=== PATIENT | female | born 1980 | race American Indian/Alaskan Native ===

== ENCOUNTER 2017-06-24 18:58 | Emergency (ER) | payer OTHER ==
[2017-06-24 19:28] VITALS: BP 143/100
[2017-06-24] MEDS ORDERED: PERCOCET 5/325 PO ONE (21:58)
--- NOTE | 2017-06-24 22:16 | Emergency Department Report ---
ED Rash HPI - HPI Chief Complaint: Skin Rash Stated Complaint: RASH Time Seen by Provider: 06/24/17 21:57 Duration: 7 days Location: Chest (left side under breast) Rash Symptoms: No Itching, No Facial Swelling, No Tongue/Oral Swelling, No Breathing Difficulties, No Choking Sensation, No Wheezing/Dyspnea, No Peeling, No Blistering, No Fever, No Lightheaded, No Malaise, No Myalgias Severity: severe Other History: 37-year-old -[place] female with a past medical history of diabetes anxiety in herpes 2 comes in complaining of rash under her left breast. She reports she is being treated for the last 7 days with Silvadene cream that she started on Sunday and Valtrex 500 mg daily that she started on . She reports pain is worsening also reports a blister on her crack of her butt that has been draining. Patient reports her pain is a 10 out of 10. ED Review of Systems ROS: Stated complaint: RASH Other details as noted in HPI Constitutional: denies: chills, fever Eyes: denies: eye pain, eye discharge, vision change ENT: denies: ear pain, throat pain Respiratory: denies: cough, shortness of breath, wheezing Cardiovascular: denies: chest pain, palpitations Endocrine: no symptoms reported Gastrointestinal: denies: abdominal pain, nausea, diarrhea Genitourinary: denies: urgency, dysuria, discharge Musculoskeletal: denies: back pain, joint swelling, arthralgia Skin: lesions (under left breast, between the gluteal folds), other (painful rash under left breast with mild discharge, cut on the gluteal fold with discharge) Neurological: denies: headache, weakness, paresthesias Psychiatric: denies: anxiety, depression Hematological/Lymphatic: denies: easy bleeding, easy bruising ED Past Medical Hx - Past Medical History Hx Diabetes: Yes Hx Psychiatric Treatment: Yes (Anxiety) Additional medical history: Herpes 2. - Surgical History Past Surgical History?: No - Social History Smoking Status: Current Some Day Smoker Substance Use Type: None - Medications Home Medications: Home Medications Medication Instructions Recorded Confirmed Last Taken Type HYDROcodone/APAP 10-325 [[place] 1 each PO Q8HR PRN #20 tablet 03/09/15 Unknown Rx 10/325] Lisinopril [Zestril TAB] 10 mg PO DAILY 30 Days tablet 03/09/15 Unknown Rx Sitagliptin Phosphate [Januvia] 100 mg PO DAILY #30 tablet 03/09/15 Unknown Rx metFORMIN XR [Glucophage XR] 1,000 mg PO QDAY #60 tablet 03/09/15 Unknown Rx Acetaminophen/Codeine [Tylenol 1 tab PO Q6H PRN #12 tab 06/24/17 Unknown Rx /Codeine # 3 tab] Ibuprofen 800 mg PO Q8HR PRN #30 tablet 06/24/17 Unknown Rx Rash Exam - Exam General: Vital signs noted. No distress. Alert and acting appropriately. HEENT: No Periorbital Edema, No Conjuctival Injection, No Chemosis, No Perioral Edema, No Tongue Edema, No Uvular Edema, No Compromised Airway, No Drooling Lungs: Yes Good Air Exchange (Normal Breath Sounds), No Wheezes, No Ronchi, No Stridor, No Cough, No Labored Respirations, No Retractions, No Use of Accessory Muscles, No Other Abnormal Lung Sounds Heart: Yes Regular, No Murmur Skin: Yes Excoriations (under left breast ), Yes Weeping (under left breast ), Yes Tenderness (under left breast ), Yes Erythema (under left breast ), Yes Other (half a centimeter opening to the supra gluteal crest near the sinus cavity. Opening skin is excoriated with no granulation to the skin mild discharge noted on washcloth that patient is placed between her gluteal cheeks) Other: Positive: Neurologic Normal, Musculoskeletal Normal ED Course Vital Signs 06/24/17 19:21 Temperature 98 F Pulse Rate 105 H Respiratory 18 Rate Blood Pressure 143/100 O2 Sat by Pulse 99 Oximetry ED Medical Decision Making - Medical Decision Making Patient has been evaluated by this provider fast track. This provider wanted upstairs to fine wound care treatment. Discussed with patient that we'll place a observable pad under her left breast as well as a pressure point dressing intergluteal fold. Discussed with patient that she needs to follow up with wound care clinic list one below. I will discharge patient home with pain medication and she needs to follow-up with her primary care provider tomorrow. Patient verbalized understanding. Critical care attestation.: If time is entered above; I have spent that time in minutes in the direct care of this critically ill patient, excluding procedure time. ED Disposition Clinical Impression: Lesion of skin of breast Wound of gluteal cleft Qualifiers: Encounter type: initial encounter Laterality: unspecified laterality Qualified Code(s): S31.809A - Unspecified open wound of unspecified buttock, initial encounter Disposition: - TO HOME OR SELFCARE Is pt being admited?: No Does the pt Need Aspirin: No Condition: Stable Instructions: Pressure Ulcer (ED) Additional Instructions: Please apply dressing as prescribed. Follow-up with [facility] wound care clinic I have listed the address and phone number and her discharge paperwork.. Please take pain medication responsibly do not operate heavy machinery. Follow up with her primary care provider within 3-5 days if possible. Prescriptions: Acetaminophen/Codeine [Tylenol /Codeine # 3 tab] 1 tab PO Q6H PRN #12 tab PRN Reason: Pain Ibuprofen 800 mg PO Q8HR PRN #30 tablet PRN Reason: Pain Referrals: GILBERTO SANTO MD [Primary Care Provider] - 3-5 Days [facility] [Other] - 3-5 Days Forms: Work/School Release Form(ED)
== END 2017-06-24 22:51 | disposition home or self-care (01) ==
LOC: ED 18:58
DX: S31.809A Unspecified open wound of unspecified buttock, initial encounter (principal); L98.8 Other specified disorders of the skin and subcutaneous tissue; E11.9 Type 2 diabetes mellitus without complications; F41.9 Anxiety disorder, unspecified; F17.200 Nicotine dependence, unspecified, uncomplicated; X58.XXXA Exposure to other specified factors, initial encounter; Y93.89 Activity, other specified; Y99.8 Other external cause status; Y92.89 Other specified places as the place of occurrence of the external cause
CPT/HCPCS: 99282

== ENCOUNTER 2019-01-24 08:47 | Emergency (ER) | payer SELFPAY ==
--- NOTE | 2019-01-24 09:30 | Emergency Department Report ---
- General Chief complaint: Extremity Injury, Lower Stated complaint: R FOOT PAIN Time Seen by Provider: 01/24/19 09:24 Source: patient Mode of arrival: Ambulatory Limitations: No Limitations - History of Present Illness Initial comments: 38-year-old -[place] female presents to the emergency room complaining of blisters to the great toe and second third and fourth toe that she noticed last night. She denies any prior treatment patient reports that she is a diabetic. Patient denies any trauma no fever no chills. 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 Patient reports that she recently traveled to [place] for 4 days. complaint: abscess/boil Onset/Timin -: days(s) Location: R foot Severity scale (0 -10): 2 Improves with: none Worsens with: none Associated symptoms: denies other symptoms Treatments Prior to Arrival: none - Related Data Previous Rx's Medication Instructions Recorded Last Taken Type HYDROcodone/APAP 10-325 [[place] 1 each PO Q8HR PRN #20 tablet 03/09/15 Unknown Rx 10/325] Lisinopril [Zestril TAB] 10 mg PO DAILY 30 Days tablet 03/09/15 Unknown Rx Sitagliptin Phosphate [Januvia] 100 mg PO DAILY #30 tablet 03/09/15 Unknown Rx metFORMIN XR [Glucophage XR] 1,000 mg PO QDAY #60 tablet 03/09/15 Unknown Rx Acetaminophen/Codeine [Tylenol 1 tab PO Q6H PRN #12 tab 06/24/17 Unknown Rx /Codeine # 3 tab] Ibuprofen 800 mg PO Q8HR PRN #30 tablet 06/24/17 Unknown Rx Doxycycline Hyclate [Doxycycline 100 mg PO Q12HR #20 tab 01/24/19 Unknown Rx Hyclate TAB] Allergies Allergy/AdvReac Type Severity Reaction Status Date / Time No Known Allergies Allergy Verified 01/24/19 08:54 Abscess Boil HPI - HPI Chief Complaint: Extremity Injury, Lower Stated Complaint: R FOOT PAIN Time Seen by Provider: 01/24/19 09:24 Home Medications: Previous Rx's Medication Instructions Recorded Last Taken Type HYDROcodone/APAP 10-325 [[place] 1 each PO Q8HR PRN #20 tablet 03/09/15 Unknown Rx 10/325] Lisinopril [Zestril TAB] 10 mg PO DAILY 30 Days tablet 03/09/15 Unknown Rx Sitagliptin Phosphate [Januvia] 100 mg PO DAILY #30 tablet 03/09/15 Unknown Rx metFORMIN XR [Glucophage XR] 1,000 mg PO QDAY #60 tablet 03/09/15 Unknown Rx Acetaminophen/Codeine [Tylenol 1 tab PO Q6H PRN #12 tab 06/24/17 Unknown Rx /Codeine # 3 tab] Ibuprofen 800 mg PO Q8HR PRN #30 tablet 06/24/17 Unknown Rx Doxycycline Hyclate [Doxycycline 100 mg PO Q12HR #20 tab 01/24/19 Unknown Rx Hyclate TAB] Allergies/Adverse Reactions: Allergies Allergy/AdvReac Type Severity Reaction Status Date / Time No Known Allergies Allergy Verified 01/24/19 08:54 ED Review of Systems ROS: Stated complaint: R FOOT PAIN Other details as noted in HPI ED Past Medical Hx - Past Medical History Hx Diabetes: Yes Hx Psychiatric Treatment: Yes (Anxiety) Additional medical history: Herpes 2. - Social History Smoking Status: Never Smoker Substance Use Type: Alcohol - Medications Home Medications: Home Medications Medication Instructions Recorded Confirmed Last Taken Type HYDROcodone/APAP 10-325 [[place] 1 each PO Q8HR PRN #20 tablet 03/09/15 Unknown Rx 10/325] Lisinopril [Zestril TAB] 10 mg PO DAILY 30 Days tablet 03/09/15 Unknown Rx Sitagliptin Phosphate [Januvia] 100 mg PO DAILY #30 tablet 03/09/15 Unknown Rx metFORMIN XR [Glucophage XR] 1,000 mg PO QDAY #60 tablet 03/09/15 Unknown Rx Acetaminophen/Codeine [Tylenol 1 tab PO Q6H PRN #12 tab 06/24/17 Unknown Rx /Codeine # 3 tab] Ibuprofen 800 mg PO Q8HR PRN #30 tablet 06/24/17 Unknown Rx Doxycycline Hyclate [Doxycycline 100 mg PO Q12HR #20 tab 01/24/19 Unknown Rx Hyclate TAB] ED Physical Exam - General Limitations: No Limitations General appearance: alert, in no apparent distress - Head Head exam: Present: atraumatic, normocephalic - Eye Eye exam: Present: normal appearance - ENT ENT exam: Present: mucous membranes moist - Expanded Lower Extremity Exam Right Upper Leg exam: Present: normal inspection, full ROM Knee exam: Present: normal inspection, full ROM Lower Leg exam: Present: normal inspection, full ROM Ankle exam: Present: normal inspection, full ROM Foot/Toe exam: Present: swelling (2,3,4 great toe no swelling). Absent: tenderness Gait: Positive: observed and normal - Neurological Exam Neurological exam: Present: alert, oriented X3, normal gait - Psychiatric Psychiatric exam: Present: normal affect, normal mood - Skin Skin exam: Present: warm, dry, intact, normal color. Absent: rash ED Course Vital Signs 01/24/19 01/24/19 01/24/19 08:54 08:55 09:58 Temperature 98.4 F 98.4 F 98.8 F Pulse Rate 98 H 102 H 92 H Respiratory 16 16 18 Rate Blood Pressure 122/78 122/78 Blood Pressure 129/85 [Left] O2 Sat by Pulse 100 96 100 Oximetry ED Medical Decision Making - Medical Decision Making 38-year-old -[place] female presents to the emergency room complaining of blisters to the great toe and second third and fourth toe that she noticed last night. She denies any prior treatment patient reports that she is a diabetic. Patient denies any trauma no fever no chills. 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 Patient reports that she recently traveled to [place] for 4 days. Consulted he recommends placing her on antibiotics. Critical care attestation.: If time is entered above; I have spent that time in minutes in the direct care of this critically ill patient, excluding procedure time. ED Disposition Clinical Impression: Blistered skin Disposition: [id number] TO HOME OR SELFCARE Is pt being admited?: No Does the pt Need Aspirin: No Condition: Stable Prescriptions: Doxycycline Hyclate [Doxycycline Hyclate TAB] 100 mg PO Q12HR #20 tab Referrals: PRIMARY CARE, [Primary Care Provider] - 3-5 Days GILBERTO SANTO MD [Staff Physician] - 3-5 Days
[2019-01-24 10:01] VITALS: BP 129/85
== END 2019-01-24 10:01 | disposition home or self-care (01) ==
LOC: ED 08:47
DX: S90.424A Blister (nonthermal), right lesser toe(s), initial encounter (principal); E11.9 Type 2 diabetes mellitus without complications; F41.9 Anxiety disorder, unspecified; X58.XXXA Exposure to other specified factors, initial encounter; Y93.89 Activity, other specified; Y92.89 Other specified places as the place of occurrence of the external cause; Y99.8 Other external cause status
CPT/HCPCS: 99282

== ENCOUNTER 2019-02-02 04:45 | Emergency (ER) | payer SELFPAY ==
[2019-02-02 05:49] LABS: BUN/Creatinine Ratio 20; Blood Urea Nitrogen 14 mg/dL (7-17); Hemolysis Index 5
[2019-02-02 05:51] LABS: Basophils # (Auto) 0.1 K/mm3 (0.0-0.1); Basophils % (Auto) 0.6 % (0.0-1.8); Eosinophils % (Auto) 0.5 % (0.0-4.3); Hematocrit 41.1 % (30.3-42.9); Hemoglobin 13.5 gm/dl (10.1-14.3); Lymphocytes # (Auto) 2.5 K/mm3 (1.2-5.4); Lymphocytes % (Auto) 24.8 % (13.4-35.0); Mean Corpuscular HGB Conc 33 % (30-34); Mean Corpuscular Volume 86 fl (79-97); Monocytes # (Auto) 0.4 K/mm3 (0.0-0.8); Platelet Count 404 K/mm3 (140-440); Red Blood Count 4.76 M/mm3 (3.65-5.03); Red Cell Distribution Width 15.7 % (13.2-15.2)
[2019-02-02] MEDS ORDERED: ONDANSETRON 4 MG ODT TAB PO ONE (06:07)
[2019-02-02] MEDS ORDERED: ALUM-MAG HYDROXIDE-SIMETHICONE 200-200-20MG/5ML ORAL LIQD 30 ML PO ONE (06:07)
[2019-02-02] MEDS ORDERED: ALUM-MAG HYDROXIDE-SIMETHICONE 200-200-20MG/5ML ORAL LIQD 30 ML ONE (06:14)
[2019-02-02] MEDS ORDERED: ONDANSETRON 4 MG ODT TAB ONE (06:14)
[2019-02-02] MEDS ORDERED: LIDOCAINE VISCOUS 2% 15 ML ORAL LIQD ONE (06:14)
[2019-02-02] MEDS ORDERED: LIDOCAINE VISCOUS 2% 15 ML ORAL LIQD PO ONE (06:16)
[2019-02-02 06:25] VITALS: BP 131/90
--- NOTE | 2019-02-02 06:40 | Emergency Department Report ---
ED General Adult HPI - General Chief complaint: Chest Pain Stated complaint: CHEST PAIN Time Seen by Provider: 02/02/19 06:29 Source: patient Mode of arrival: Ambulatory Limitations: No Limitations - History of Present Illness Initial comments: Patient presents to the emergency Department for chief complaint of chest pain. Patient states that she has a history of anxiety and for the last couple of days after beginning antibiotics she's had nausea and vomiting while eating. Patient states that the vomiting caused her to have a burning sensation in her chest. Patient denies any elizabeth chest pain, shortness breath, or abdominal pain. -: Sudden Location: chest Radiation: non-radiation Severity scale (0 -10): 2 Quality: burning Consistency: constant Improves with: none Worsens with: none Associated Symptoms: denies other symptoms Treatments Prior to Arrival: none - Related Data Previous Rx's Medication Instructions Recorded Last Taken Type HYDROcodone/APAP 10-325 [[place] 1 each PO Q8HR PRN #20 tablet 03/09/15 Unknown Rx 10/325] Lisinopril [Zestril TAB] 10 mg PO DAILY 30 Days tablet 03/09/15 Unknown Rx Sitagliptin Phosphate [Januvia] 100 mg PO DAILY #30 tablet 03/09/15 Unknown Rx metFORMIN XR [Glucophage XR] 1,000 mg PO QDAY #60 tablet 03/09/15 Unknown Rx Acetaminophen/Codeine [Tylenol 1 tab PO Q6H PRN #12 tab 06/24/17 Unknown Rx /Codeine # 3 tab] Ibuprofen 800 mg PO Q8HR PRN #30 tablet 06/24/17 Unknown Rx Doxycycline Hyclate [Doxycycline 100 mg PO Q12HR #20 tab 01/24/19 Unknown Rx Hyclate TAB] Famotidine [Pepcid] 20 mg PO BID #30 tablet 02/02/19 Unknown Rx Allergies Allergy/AdvReac Type Severity Reaction Status Date / Time No Known Allergies Allergy Verified 01/24/19 08:54 ED Review of Systems ROS: Stated complaint: CHEST PAIN Other details as noted in HPI Comment: All other systems reviewed and negative Constitutional: denies: chills, fever Eyes: denies: eye pain, eye discharge, vision change ENT: denies: ear pain, throat pain Respiratory: denies: cough, shortness of breath, wheezing Cardiovascular: denies: chest pain, palpitations Endocrine: no symptoms reported Gastrointestinal: denies: abdominal pain, nausea, diarrhea Genitourinary: denies: urgency, dysuria, discharge Musculoskeletal: denies: back pain, joint swelling, arthralgia Skin: denies: rash, lesions Neurological: denies: headache, weakness, paresthesias Psychiatric: denies: anxiety, depression Hematological/Lymphatic: denies: easy bleeding, easy bruising ED Past Medical Hx - Past Medical History Previous Medical History?: Yes Hx Diabetes: Yes Hx Psychiatric Treatment: Yes (Anxiety) Additional medical history: Herpes 2. - Surgical History Past Surgical History?: No - Social History Smoking Status: Current Every Day Smoker Substance Use Type: Alcohol - Medications Home Medications: Home Medications Medication Instructions Recorded Confirmed Last Taken Type HYDROcodone/APAP 10-325 [[place] 1 each PO Q8HR PRN #20 tablet 03/09/15 Unknown Rx 10/325] Lisinopril [Zestril TAB] 10 mg PO DAILY 30 Days tablet 03/09/15 Unknown Rx Sitagliptin Phosphate [Januvia] 100 mg PO DAILY #30 tablet 03/09/15 Unknown Rx metFORMIN XR [Glucophage XR] 1,000 mg PO QDAY #60 tablet 03/09/15 Unknown Rx Acetaminophen/Codeine [Tylenol 1 tab PO Q6H PRN #12 tab 06/24/17 Unknown Rx /Codeine # 3 tab] Ibuprofen 800 mg PO Q8HR PRN #30 tablet 06/24/17 Unknown Rx Doxycycline Hyclate [Doxycycline 100 mg PO Q12HR #20 tab 01/24/19 Unknown Rx Hyclate TAB] Famotidine [Pepcid] 20 mg PO BID #30 tablet 02/02/19 Unknown Rx ED Physical Exam - General Limitations: No Limitations General appearance: alert, in no apparent distress - Head Head exam: Present: atraumatic, normocephalic - Eye Eye exam: Present: normal appearance, PERRL, EOMI - ENT ENT exam: Present: mucous membranes moist - Neck Neck exam: Present: normal inspection - Respiratory Respiratory exam: Present: normal lung sounds bilaterally. Absent: respiratory distress - Cardiovascular Cardiovascular Exam: Present: regular rate, normal rhythm. Absent: systolic murmur, diastolic murmur, rubs, gallop - GI/Abdominal GI/Abdominal exam: Present: soft, normal bowel sounds. Absent: distended, tenderness - Extremities Exam Extremities exam: Present: normal inspection - Back Exam Back exam: Present: normal inspection - Neurological Exam Neurological exam: Present: alert, oriented X3, CN II-XII intact. Absent: motor sensory deficit - Psychiatric Psychiatric exam: Present: normal affect, normal mood - Skin Skin exam: Present: warm, dry, intact, normal color. Absent: rash ED Course Vital Signs 02/02/19 02/02/19 02/02/19 04:50 05:41 05:42 Temperature 98.4 F Pulse Rate 37 L 93 H Respiratory 16 15 15 Rate Blood Pressure 129/91 Blood Pressure 134/87 [Right] O2 Sat by Pulse 94 98 98 Oximetry 02/02/19 06:24 Temperature Pulse Rate 97 H Respiratory 14 Rate Blood Pressure Blood Pressure 131/90 [Right] O2 Sat by Pulse 97 Oximetry ED Medical Decision Making - Lab Data Result diagrams: 02/02/19 05:15 02/02/19 05:15 Lab Results 02/02/19 02/02/19 02/02/19 Range/Units 05:15 05:15 05:15 WBC 10.1 (4.5-11.0) K/mm3 RBC 4.76 (3.65-5.03) M/mm3 Hgb 13.5 (10.1-14.3) gm/dl Hct 41.1 (30.3-42.9) % MCV 86 (79-97) fl MCH 28 (28-32) pg MCHC 33 (30-34) % RDW 15.7 H (13.2-15.2) % Plt Count 404 (140-440) K/mm3 Lymph % (Auto) 24.8 (13.4-35.0) % [place] % (Auto) 4.0 (0.0-7.3) % Eos % (Auto) 0.5 (0.0-4.3) % Baso % (Auto) 0.6 (0.0-1.8) % Lymph # 2.5 (1.2-5.4) K/mm3 [place] # 0.4 (0.0-0.8) K/mm3 Eos # 0.0 (0.0-0.4) K/mm3 Baso # 0.1 (0.0-0.1) K/mm3 Seg Neutrophils % 70.1 H (40.0-70.0) % Seg Neutrophils # 7.1 (1.8-7.7) K/mm3 Sodium 135 L (137-145) mmol/L Potassium 4.7 (3.6-5.0) mmol/L Chloride 94.4 L (98-107) mmol/L Carbon Dioxide 23 (22-30) mmol/L Anion Gap 22 mmol/L BUN 14 (7-17) mg/dL Creatinine 0.7 (0.7-1.2) mg/dL Estimated GFR > 60 ml/min BUN/Creatinine Ratio 20 % Glucose 311 H (65-100) mg/dL Calcium 10.0 (8.4-10.2) mg/dL Troponin T < 0.010 (0.00-0.029) ng/mL HCG, Qual Negative (Negative) - Radiology Data Radiology results: image reviewed - Medical Decision Making discussed results with patient Critical care attestation.: If time is entered above; I have spent that time in minutes in the direct care of this critically ill patient, excluding procedure time. ED Disposition Clinical Impression: Chest pain, non-cardiac, Acid reflux Disposition: TO HOME OR SELFCARE Is pt being admited?: No Does the pt Need Aspirin: No Condition: Stable Instructions: Gastroesophageal Reflux in Children (ED), Noncardiac Chest Pain (ED), Chest Pain (ED) Additional Instructions: return if worse Prescriptions: Famotidine [Pepcid] 20 mg PO BID #30 tablet Referrals: ISHA BAILEY MD [Primary Care Provider] - 3-5 Days [facility] [Provider Group] - 3-5 Days [facility] [Provider Group] - 3-5 Days Time of Disposition: 06:38
--- NOTE | 2019-02-02 06:56 | XRay Report ---
CHEST 1 VIEW [id number] INDICATION / CLINICAL INFORMATION: Chest Pain. COMPARISON: None available. FINDINGS: SUPPORT DEVICES: None HEART / MEDIASTINUM: No significant abnormality. LUNGS / PLEURA: No significant pulmonary or pleural abnormality. No pneumothorax. ADDITIONAL FINDINGS: No significant additional findings. IMPRESSION: No significant acute abnormality Signer Name: Harry Velazquez MD Signed: 02/02/2019 6:52 AM Workstation Name: [id number]
== END 2019-02-02 06:45 | disposition home or self-care (01) ==
LOC: ED 04:45
DX: K21.9 Gastro-esophageal reflux disease without esophagitis (principal); F41.9 Anxiety disorder, unspecified; F17.200 Nicotine dependence, unspecified, uncomplicated; E11.9 Type 2 diabetes mellitus without complications; Z79.84 Long term (current) use of oral hypoglycemic drugs
CPT/HCPCS: 36415; 71045; 80048; 84484; 84703; 85025; 93005; 93010; Q0162